=== PATIENT | male | born 1950 | race Caucasian/White ===

== ENCOUNTER 2016-06-28 05:56 | Emergency (ER) | payer OTHER ==
[~2016-06-28] VITALS: Ht 175.3 cm; Wt 144.1 kg
[~2016-06-28 05:56] MED LIST: ASPIRIN E.C.81 M2 PO; BIOTENE MOISTUR45 ML PO; CARDIZEM LA240 MG PO; CARTIA XT240 MG PO; CIPROFLOXACIN500 M1 PO; CLINDAMYCIN HC300 MG PO; CLONIDINE HCL0.2 MG PO; FIBER THERAPY PO; LISINOPRIL40 MG PO; LO-DOSE ASPIRIN81 M1 PO; PEPCID20 MG PO; PULMICORT FLE180 MCG IH; ZESTRIL,PRINIVI10 MG PO
[2016-06-28 06:54] LABS: BASOPHIL COUNT 0.1 K/uL (0-0.1); EOSINOPHIL (%) 1.9 % (0-5); EOSINOPHIL COUNT 0.2 K/uL (0-0.3); HEMATOCRIT 49.4 % (38.0-50.0); IMMATURE GRANULOCYTE (%) 0.5 % (0.0-0.7); INSTRUMENT ABS NEUTROPHIL CT 5.1 K/uL; LYMPHOCYTE COUNT 2.1 K/uL (1.0-2.8); MCHC 32.6 G/DL (30.0-36.0); MCV 85.9 FL (86-99); MEAN PLAT.VOLUME 10.3 uM^3 (9.0-12.4); MONOCYTE (%) 11.7 % (3-12); NEUTROPHIL (%) 60.2 % (45-76); NEUTROPHIL COUNT 5.1 K/uL (1.8-6.4); PLATELET COUNT 167 K/uL (156-360); RBC DIS.WIDTH-CV 13.5 % (11.8-14.6); RBC DIS.WIDTH-SD 42.3 % (39-53); RED BLOOD COUNT 5.75 M/uL (4.00-5.50); WHITE BLOOD COUNT 8.4 K/uL (4.1-10.2)
[2016-06-28 07:03] LABS: CHLORIDE 112 mEq/L (99-109); POTASSIUM 3.6 mEq/L (3.7-5.4); SODIUM 144 mEq/L (136-147)
[2016-06-28 07:04] LABS: MAGNESIUM 1.9 mg/dL (1.3-2.7)
[2016-06-28 07:05] LABS: GLUCOSE 178 mg/dL (70-99)
[2016-06-28 07:07] LABS: ANION GAP 10 MEQ/L (2-14); TOTAL BILIRUBIN 0.5 mg/dL (0.0-1.0)
[2016-06-28 07:09] LABS: ALKALINE PHOSPHATASE 71 IU/L (3-129); GFR ESTIMATE (CALCULATED) > 59 mL/min/
[2016-06-28 07:10] LABS: UREA NITROGEN (BUN) 17 mg/dL (9-23)
[2016-06-28 07:23] LABS: TROP-I INTERPRETATION NEGATIVE; TROPONIN-I < 0.01 ng/mL (0.0-0.30)
[2016-06-28] MEDS ORDERED: XARELTO20 MG PO (09:16)
[2016-06-28 10:11] VITALS: BP 123/67
== END 2016-06-28 10:11 | disposition home or self-care (01) ==
LOC: EME 05:56
PROVIDERS: Emergency Medicine
PROC: 5A2204Z Restoration of Cardiac Rhythm, Single (ICD-10-PCS; principal; 2016-06-28)
DX: I48.91 Unspecified atrial fibrillation (principal); R06.02 Shortness of breath; I10 Essential (primary) hypertension; J45.909 Unspecified asthma, uncomplicated; Z79.82 Long term (current) use of aspirin; Z87.891 Personal history of nicotine dependence
CPT/HCPCS: 71010; 80053; 83735; 84484; 85025; 93005; 99281; 99285

== ENCOUNTER 2017-07-18 23:48 | Observation (INO) | payer OTHER ==
[~2017-07-18] VITALS: Ht 175.3 cm; Wt 140.2 kg
[~2017-07-18 23:48] MED LIST changes: +FAMOTIDINE10 M1 PO; -PEPCID20 MG PO; +XARELTO20 MG PO
[2017-07-19 00:20] LABS: HEMATOCRIT 48.5 % (38.0-50.0); HEMOGLOBIN 16.4 G/DL (12.5-16.6); MCH 29.4 PG (29.0-34.0); MCHC 33.8 G/DL (30.0-36.0); MCV 87.1 FL (86-99); PLATELET COUNT 176 K/uL (156-360); RBC DIS.WIDTH-SD 45.1 % (39-53); RED BLOOD COUNT 5.57 M/uL (4.00-5.50); WHITE BLOOD COUNT 12.2 K/uL (4.1-10.2)
[2017-07-19 00:33] LABS: CHLORIDE 109 mEq/L (99-109); POTASSIUM 4.1 mEq/L (3.7-5.4); SODIUM 141 mEq/L (136-147)
[2017-07-19 00:35] LABS: GLUCOSE 128 mg/dL (70-99)
[2017-07-19 00:39] LABS: GFR ESTIMATE (CALCULATED) > 59 mL/min/ (58.99-99999)
[2017-07-19 00:40] LABS: UREA NITROGEN (BUN) 31 mg/dL (9-23)
[2017-07-19 00:42] LABS: TROP-I INTERPRETATION NEGATIVE; TROPONIN-I 0.01 ng/mL (0.0-0.30)
[2017-07-19 01:02] LABS: ALBUMIN 4.3 g/dL (3.2-4.8)
[2017-07-19 01:03] LABS: PTT 29.9 SEC (25-37)
[2017-07-19 01:04] LABS: TOTAL PROTEIN 7.5 g/dL (6.4-8.3)
[2017-07-19 01:06] LABS: TOTAL BILIRUBIN 0.4 mg/dL (0.0-1.0)
[2017-07-19 01:07] LABS: ALKALINE PHOSPHATASE 85 IU/L (3-129)
[2017-07-19 01:10] LABS: ALT (GPT) 22 IU/L (3-49); AST (GOT) 20 IU/L (2-34); DIRECT BILIRUBIN 0.2 mg/dL (0.0-0.3)
[2017-07-19 01:11] LABS: LIPASE 23 U/L (1.0-51.0)
[2017-07-19 03:06] LABS: TROP-I INTERPRETATION NEGATIVE; TROPONIN-I < 0.01 ng/mL (0.0-0.30)
[2017-07-19 05:30] VITALS: BP 152/72
[2017-07-19] MEDS ORDERED: LOPRESSOR25 MG PO (07:36)
[2017-07-19 07:51] VITALS: BP 144/70
[2017-07-19 09:41] LABS: TROP-I INTERPRETATION NEGATIVE; TROPONIN-I < 0.01 ng/mL (0.0-0.30)
[2017-07-19 11:33] VITALS: BP 161/77
[2017-07-19] MEDS ORDERED: NITROSTAT0.4 MG SL (12:17)
[2017-07-19 12:40] LABS: TROP-I INTERPRETATION NEGATIVE; TROPONIN-I < 0.01 ng/mL (0.0-0.30)
[2017-07-19] MEDS ORDERED: ELIQUIS5 MG PO (14:23)
== END 2017-07-19 14:57 | disposition home or self-care (01) ==
LOC: EME 23:48 → EDOF 07-19 04:23 → ENRESERV 07-19 04:24 → 4SOUTH 07-19 05:23
PROVIDERS: Emergency Medicine; Hospitalist; Physician Assistant
DX: R00.2 Palpitations (principal); I10 Essential (primary) hypertension; E11.9 Type 2 diabetes mellitus without complications; I48.0 Paroxysmal atrial fibrillation; E86.0 Dehydration; E66.01 Morbid (severe) obesity due to excess calories; Z98.890 Other specified postprocedural states; K21.9 Gastro-esophageal reflux disease without esophagitis; Z90.49 Acquired absence of other specified parts of digestive tract; Z87.891 Personal history of nicotine dependence; Z82.3 Family history of stroke; Z88.0 Allergy status to penicillin; Z88.2 Allergy status to sulfonamides; Z88.8 Allergy status to other drugs, medicaments and biological substances; Z79.82 Long term (current) use of aspirin
CPT/HCPCS: 71046; 80048; 80076; 81003; 83690; 84484; 85027; 85610; 85730; 93005; 99281; 99285; G0378; J1644; J7030

== ENCOUNTER 2017-07-19 19:06 | Emergency (ER) | payer OTHER ==
[~2017-07-19] VITALS: Ht 175.3 cm; Wt 138.7 kg
[~2017-07-19 19:06] MED LIST changes: +ELIQUIS5 MG PO; +LOPRESSOR25 MG PO; +NITROSTAT0.4 MG SL
[2017-07-19 20:08] LABS: TROP-I INTERPRETATION NEGATIVE; TROPONIN-I < 0.01 ng/mL (0.0-0.30)
[2017-07-19 21:45] VITALS: BP 167/67
== END 2017-07-19 21:47 | disposition home or self-care (01) ==
LOC: EME → EDBD 19:06 → EME 19:06
PROVIDERS: Emergency Medicine
DX: R00.2 Palpitations (principal); I10 Essential (primary) hypertension; E11.9 Type 2 diabetes mellitus without complications; K21.9 Gastro-esophageal reflux disease without esophagitis; J45.909 Unspecified asthma, uncomplicated; Z88.2 Allergy status to sulfonamides; Z88.0 Allergy status to penicillin; Z87.891 Personal history of nicotine dependence
CPT/HCPCS: 83735; 84484; 93005; 99281; 99284